=== PATIENT | female | born 1980 | race Caucasian/White ===

== ENCOUNTER 2018-04-27 10:58 | Emergency (ER) | payer OTHER ==
[2018-04-27 11:29] VITALS: BP 169/93; PULSE 113; TEMP 99.1; BMI 44.2
[2018-04-27] MEDS ORDERED: ACETAMINOPHEN 500 MG TABLET (FP) PO ONE (12:02)
[2018-04-27] MEDS ORDERED: ACETAMINOPHEN 500 MG TABLET (FP) ONE (12:09)
--- NOTE | 2018-04-27 12:12 | PDOC ---
History of Present Illness - General Chief Complaint: Cold Symptoms Stated Complaint: COLD SYMPTOMS Time Seen by Provider: 04/27/18 11:44 - History of Present Illness Initial Comments: 04/27/18 12:11 37-year-old female presents for evaluation of flulike symptoms times one day. Her symptoms started yesterday she has a sick daughter with the same symptoms. She has no comorbidities. Past History - Past Medical History Allergies/Adverse Reactions: Allergies Allergy/AdvReac Type Severity Reaction Status Date / Time No Known Allergies Allergy Verified 04/27/18 11:26 Home Medications: Ambulatory Orders Oseltamivir Phosphate [Tamiflu] 75 mg PO BID #10 capsule 04/27/18 COPD: No - Immunization History Immunization Up to Date: Yes - Suicide/Smoking/Psychosocial Hx Smoking History: Never smoked Hx Alcohol Use: No Drug/Substance Use Hx: No Review of Systems - Review of Systems Constitutional: Yes: Chills, Fever, Malaise, Night Sweats HEENTM: Yes: Nose Congestion Respiratory: Yes: Cough *Physical Exam - Vital Signs Last Vital Signs Temp Pulse Resp BP Pulse Ox 99.1 F 113 H 20 169/93 98 04/27/18 11:26 04/27/18 11:26 04/27/18 11:26 04/27/18 11:26 04/27/18 11:26 - Physical Exam Comments: 04/27/18 12:12 HEAD: NC/AT EYES: Conjuntiva clear Ears: Canals and TM's normal NOSE: No d/c THROAT: Moist mucous membrances, oral pharanx clear, uvula midline NECK: Supple without adenopathy CARDIAC: S1 S2 LUNGS: CTA Full and Equal breath sounds ABDOMEN: Soft NT ND MS: Full ROM in all joints without edema NEUROLOGIC: No gross sensory or motor deficits, NVID SKIN: Normal color and temperature no lesions or rashes Moderate Sedation - Procedure Monitoring Vital Signs: Procedure Monitoring Vital Signs Temperature 99.1 F 04/27/18 11:26 Pulse Rate 113 H 04/27/18 11:26 Respiratory Rate 20 04/27/18 11:26 Blood Pressure 169/93 04/27/18 11:26 O2 Sat by Pulse Oximetry (%) 98 04/27/18 11:26 Medical Decision Making - Medical Decision Making 04/27/18 12:51 We'll treat for flu as well her daughter who here for the same symptoms. *DC/Admit/Observation/Transfer Diagnosis at time of Disposition: Influenza - Discharge Dispostion Disposition: HOME Condition at time of disposition: Stable Decision to Admit order: No - Referrals Referrals: Cherrie May MD [Primary Care Provider] - - Patient Instructions Printed Discharge Instructions: Influenza Additional Instructions: Tylenol and Motrin as directed for pain and fever. Please take the Tamiflu as directed return to the emergency room for worsening symptoms and follow-up with your primary care physician in one to 2 days for further evaluation and treatment options. - Post Discharge Activity
== END 2018-04-27 13:04 | disposition home or self-care (01) ==
LOC: JERFT 10:58 → JER 10:58 → JERFT 13:04
DX: J10.1 Influenza due to other identified influenza virus with other respiratory manifestations (principal)
CPT/HCPCS: 87804; 99281-25

== ENCOUNTER 2021-03-24 19:31 | Emergency (ER) | payer OTHER ==
[2021-03-24 19:38] VITALS: BP 139/91; PULSE 92; TEMP 97.6; BMI 40.7
[2021-03-24] MEDS ORDERED: KETOROLAC TROMETHAMINE 30 MG/1 ML VIAL IM ONE (20:27)
[2021-03-24] MEDS ORDERED: LIDOCAINE 5% TOPICAL PATCH TP ONE (20:27)
[2021-03-24] MEDS ORDERED: diazePAM 5 MG TABLET PO ONE (20:27)
[2021-03-24] MEDS ORDERED: KETOROLAC TROMETHAMINE 30 MG/1 ML VIAL ONE (20:33)
[2021-03-24] MEDS ORDERED: diazePAM 5 MG TABLET ONE (20:33)
[2021-03-24] MEDS ORDERED: LIDOCAINE 5% TOPICAL PATCH ONE (20:33)
[2021-03-24] MEDS ORDERED: LIDOCAINE PATCH REMOVAL MC SCH (22:00)
== END 2021-03-25 01:07 | disposition home or self-care (01) ==
LOC: JER 19:31
PROC: 3E0233Z Introduction of Anti-inflammatory into Muscle, Percutaneous Approach (ICD-10-PCS; principal; 2021-03-24)
DX: M54.42 Lumbago with sciatica, left side (principal); M54.32 Sciatica, left side; W10.9XXA Fall (on) (from) unspecified stairs and steps, initial encounter
CPT/HCPCS: 72128-TC; 72131-TC; 99284-25

== ENCOUNTER 2023-11-08 12:59 | Emergency (ER) | payer BC ==
[2023-11-08] MEDS ORDERED: KETOROLAC TROMETHAMINE 30 MG/1 ML VIAL IM ONE (13:23)
[2023-11-08 13:39] VITALS: BP 156/99; PULSE 92; RESP 20; TEMP 98.2; BMI 44.1
[2023-11-08 14:10] LABS: HEMATOCRIT 42.2 % (32.4-45.2); HEMOGLOBIN 13.7 G/dL (10.7-15.3); MCHC 32.6 g/dl (32.0-36.0); MEAN CELL VOLUME 89.1 fl (80-96); MEAN PLT VOLUME 9.8 fl (7.5-11.1); PLATELET COUNT 236.8 10^3/uL (134-434); RBC 4.74 10^6/uL (3.60-5.2); RDW 13.9 % (11.6-15.6); WHITE BLOOD COUNT 7.9 10^3/uL (4.0-10.8)
[2023-11-08 14:17] LABS: ALBUMIN 4.2 g/dl (3.4-5.0); ALK PHOS 63 U/L (45-117); ANION GAP 8 mmol/L (4-13); BILIRUBIN,TOTAL 0.6 mg/dl (0.2-1); CALCIUM 9.5 mg/dl (8.5-10.1); CHLORIDE 104 mmol/L (98-107); CO2 25 mmol/L (21-32); CREATININE 0.7 mg/dl (0.6-1.3); GLUCOSE,RANDOM 98 mg/dl (74-106); SGOT/AST 12 U/L (15-37); SGPT/ALT 14 U/L (7-52); SODIUM 137 mmol/L (136-145); TOT PROT 6.9 g/dl (6.4-8.2)
[2023-11-08] MEDS ORDERED: KETOROLAC TROMETHAMINE 15 MG/ML VIAL ONE (14:47)
[2023-11-08] MEDS: KETOROLAC TROMETHAMINE 15 MG/ML VIAL IVPUSH ONE (14:53)
[2023-11-08 14:55] LABS: PLATELET ESTIMATE ADEQUATE
== END 2023-11-08 18:57 | disposition home or self-care (01) ==
LOC: FER 12:59
PROC: 3E0333Z Introduction of Anti-inflammatory into Peripheral Vein, Percutaneous Approach (ICD-10-PCS; principal; 2023-11-08)
DX: M48.02 Spinal stenosis, cervical region (principal); M54.12 Radiculopathy, cervical region; M54.2 Cervicalgia; R20.0 Anesthesia of skin
CPT/HCPCS: 36415; 70450-TC; 70496-TC; 70498-TC; 72141-TC; 80053; 84484; 84703; 85027; 93005; 99284-25